=== PATIENT | male | born 1940 | race Caucasian/White ===

== ENCOUNTER 2017-01-26 13:33 | Emergency (ER) | payer OTHER ==
[~2017-01-26] VITALS: Ht 170.2 cm; Wt 82.0 kg
[~2017-01-26 13:33] MED LIST: GLIM2TAB PO; LORTA5 PO; METF1000 PO; SIMV5TAB3 PO; ST JTAB PO
[2017-01-26 13:35] VITALS: BP 167/84; PULSE 74; RESP 14; TEMP 98.2; O2SAT 99
--- NOTE | 2017-01-26 14:32 | PD ---
HPI Chief Complaint: Bite or Sting Time Seen by Provider: 14:28 Travel History International Travel<30 days: No Contact w/Intl Traveler<30days: No Traveled to known affect area: No History of Present Illness HPI 76-year-old male came to the emergency room with history of a dog bite on his right upper extremity. Patient says that he was coming out of his doctor's office when he noticed a stray dog TRYING to cross the street. There was a leash attached to him. Patient grabbed the leash and tried to tie the dog to a vogel when the dog turned around and bit him. Patient called his primary care who asked him to go to the nearest emergency room. There is slight bleeding from the elbow area where he was bitten. He says it does not hurt otherwise. He has noticed some swelling there. Patient does not recall his last tetanus shot. [facility] Past Medical History Narrative Medical List of his past medical, surgical, social and family history as reviewed from the nursing note. Arthritis: Yes Cancer: No Cardiovascular Problems: Yes High Cholesterol: Yes Diabetes: Yes Endocrine: Yes GERD: Yes (GERD) Genitourinary: No Hypertension: Yes Immune Disorder: No Musculoskeletal: No Neurologic: No Psychiatric: No Reproductive: No Respiratory: No Ulcer: Yes (PEPTIC ULCER) ?: Not Social History Alcohol Use: Yes Tobacco Use: No Substance Use: No Allergies-Medications (Allergen,Severity, Reaction): Coded Allergies: No Known Allergies (Unverified , 09/17/13) Comments No known drug allergies. Reported Meds & Prescriptions Reported Meds & Active Scripts Active Augmentin (Amoxicillin-Clavulanate) 500-125 mg Tab 500 Mg PO BID 10 Days Reported Hydrocodone/Acetaminophen 5 mg/325 mg 1 Tab Tab 1 Tab PO Q4 PRN 1-2 TABLET NEEDED FOR PAIN. Glimepiride 2 Mg Tab 2 Mg PO DAILY Metformin (Metformin HCl) 1,000 Mg Tab 500 Mg PO DAILY Simvastatin 5 Mg Tab 5 Mg PO HS PRN Aspirin Ec Low Strength (Aspirin) 81 Mg Tab 81 Mg PO DAILY Narrative Medication List of his home medications reviewed from the nursing note. Review of Systems Except as stated in HPI: all other systems reviewed are Neg Physical Exam Narrative GENERAL: Awake, alert, no obvious distress SKIN: Focused skin assessment warm/dry. Right medial aspect of the elbow has to puncture wound with minimal bleeding. It does not appear to be entering the joint. HEAD: Atraumatic. Normocephalic. EYES: Pupils equal and round. No scleral icterus. No injection or drainage. ENT: No nasal bleeding or discharge. Mucous membranes pink and moist. NECK: Trachea midline. No JVD. CARDIOVASCULAR: Regular rate and rhythm. No murmur appreciated. RESPIRATORY: No accessory muscle use. Clear to auscultation. Breath sounds equal bilaterally. GASTROINTESTINAL: Abdomen soft, non-tender, nondistended. Hepatic and splenic margins not palpable. MUSCULOSKELETAL: No obvious deformities. No clubbing. No cyanosis. No edema. Distal pulses and sensation intact of the right upper extremity NEUROLOGICAL: Awake and alert. No obvious cranial nerve deficits. Motor grossly within normal limits. Normal speech. PSYCHIATRIC: Appropriate mood and affect; insight and judgment normal. Data Data Last Documented VS Vital Signs Date Time Temp Pulse Resp B/P Pulse Ox O2 Delivery O2 Flow Rate FiO2 01/26/17 13:35 98.2 74 14 167/84 99 Orders Tetanus/Diphtheria Tox Adult (Tetanus/Di (01/26/17 14:45) Rabies Immune Globulin Inj (Hyperrab S/D (01/26/17 14:45) Rabies Vaccine Human Cell Inj (Imovax In (01/26/17 14:45) Amoxicil-Clavulanate (Augmentin) (01/26/17 14:45) ^ Irrigate (01/26/17 14:35) Wound Care (01/26/17 14:35) MDM Medical Decision Making Medical Screen Exam Complete: Yes Emergency Medical Condition: Yes Medical Record Reviewed: Yes Differential Diagnosis Dog bite Narrative Course 2:52 PM I have ordered rabies immunoglobulin, rabies shot and tetanus shot. He will get a dose of Augmentin and prescription to go home with. Patient will be explained that he needs to return to get the remaining rabies shots as well. Registration will try to contact animal control to look out for the stop. The nurse is going to irrigate the wound and a dressing Procedures EKG Prior to Arrival: No Diagnosis Primary Impression: Dog bite Qualified Code: W54.0XXA - Dog bite, initial encounter Referrals: Primary Care Physician Additional Instructions: Please return to the ER on day #3, 7 and 14 for subsequent rabies shots. Return to the ER sooner if the wound starts turning infected. Follow-up with your primary care. Med/Other Pt SpecificInfo: Prescription(s) given Scripts Amoxicillin-Clavulanate (Augmentin)500-125 mg [id number] Mg PO BID 10 Days Ref 0 Prov:Sweta Lawson MD 01/26/17 Disposition: 01 DISCHARGE HOME Condition: Stable Sweta Lawson MD January 26, 2017 14:32
[2017-01-26] MEDS ORDERED: TETANUS/DIPHTHERIA TOXOID ADULT 0.5 ML VIAL IM ONE (14:45)
[2017-01-26] MEDS ORDERED: RABIES VACCINE HUMAN DIPL CELL 2.5 UNITS/ML SYRINGE IM ONE (14:45)
[2017-01-26] MEDS ORDERED: AMOXICILLIN/CLAVULANATE K 500 MG TAB PO ONE (14:45)
[2017-01-26] MEDS ORDERED: RABIES IMMUNE GLOBULIN INJ 1,500 UNITS/10 ML VIAL IM ONE (14:45)
[2017-01-26] MEDS ORDERED: AUGM500T7 PO (15:01)
== END 2017-01-26 16:08 | disposition home or self-care (01) ==
LOC: NEPD 13:33
DX: S51.051A Open bite, right elbow, initial encounter (principal); E11.9 Type 2 diabetes mellitus without complications; E78.00 Pure hypercholesterolemia, unspecified; I10 Essential (primary) hypertension; Z79.4 Long term (current) use of insulin; Z23 Encounter for immunization; W54.0XXA Bitten by dog, initial encounter
CPT/HCPCS: 90375; 90471; 90472; 90675; 90714; 96372

== ENCOUNTER 2017-01-29 11:06 | Emergency (ER) | payer OTHER ==
[~2017-01-29] VITALS: Ht 170.2 cm; Wt 84.4 kg
[~2017-01-29 11:06] MED LIST changes: +AUGM500T7 PO
[2017-01-29 11:15] VITALS: BP 131/68; PULSE 66; RESP 16; TEMP 97.8; O2SAT 99
[2017-01-29] MEDS ORDERED: GLIM2TAB PO (11:25)
[2017-01-29] MEDS ORDERED: ZOCO5TAB PO (11:25)
[2017-01-29] MEDS ORDERED: ASPI81CH CHEW (11:25)
[2017-01-29] MEDS ORDERED: METF500T PO (11:25)
[2017-01-29] MEDS ORDERED: RABIES IMMUNE GLOBULIN INJ 1,500 UNITS/10 ML VIAL IM ONE (11:30)
--- NOTE | 2017-01-29 11:56 | PD ---
HPI Chief Complaint: Bite or Sting Time Seen by Provider: 11:49 Travel History International Travel<30 days: No Contact w/Intl Traveler<30days: No Traveled to known affect area: No History of Present Illness HPI 76-year-old male presents to the emergency department for follow-up dog bite to the right arm/elbow 3 days ago. At that time the patient was started on rabies immune globulin and vaccine. He is also started on Augmentin. Patient has no real complaints today. The wound site appears to be healing well with localized bruising only. Patient has full range of motion of the elbow and arm without pain. Patient has no known drug allergies. PFSH Past Medical History Arthritis: Yes Cancer: No Cardiovascular Problems: Yes High Cholesterol: Yes Diabetes: Yes Patient Takes Glucophage: Yes Endocrine: Yes Gastrointestinal Disorders: Yes GERD: Yes (GERD) Genitourinary: No Hypertension: Yes Immune Disorder: No Musculoskeletal: No Neurologic: No Psychiatric: No Reproductive: No Respiratory: No Ulcer: Yes (PEPTIC ULCER) Tetanus Vaccination: < 5 Years Influenza Vaccination: No Social History Alcohol Use: Yes Tobacco Use: No Substance Use: No Allergies-Medications (Allergen,Severity, Reaction): Coded Allergies: No Known Allergies (Unverified , 01/29/17) Reported Meds & Prescriptions Reported Meds & Active Scripts Active Augmentin (Amoxicillin-Clavulanate) 500-125 mg Tab 500 Mg PO BID 10 Days Reported Zocor (Simvastatin) 5 Mg Tab 5 Mg PO DAILY Metformin (Metformin HCl) 500 Mg Tab 500 Mg PO BIDPC With meals Glimepiride 2 Mg Tab 2 Mg PO DAILY Take with breakfast or first main meal Aspirin 81 Mg Chew 81 Mg CHEW DAILY Review of Systems Except as stated in HPI: all other systems reviewed are Neg General / Constitutional: No: Fever Eyes: No: Visual changes HENT: No: Headaches Cardiovascular: No: Chest Pain or Discomfort Respiratory: No: Shortness of Breath Gastrointestinal: No: Abdominal Pain Genitourinary: No: Dysuria Musculoskeletal: No: Pain Skin: Positive Lesions (dog bite to right arm/elbow.), No Rash Neurologic: No: Weakness Psychiatric: No: Depression Endocrine: No: Polydipsia Hematologic/Lymphatic: No: Easy Bruising Physical Exam Narrative GENERAL: Patient is in no acute distress. SKIN: Warm and dry. Patient has puncture wound to the right medial elbow with localized ecchymosis, but without signs of cellulitis. HEAD: Atraumatic. Normocephalic. EYES: Pupils equal and round. No scleral icterus. No injection or drainage. ENT: No nasal bleeding or discharge. Mucous membranes pink and moist. Pharynx is clear. NECK: Trachea midline. Supple and nontender. CARDIOVASCULAR: Regular rate and rhythm. RESPIRATORY: No accessory muscle use. Clear to auscultation. Breath sounds equal bilaterally. MUSCULOSKELETAL: Extremities without clubbing, cyanosis, or edema. No obvious deformities. Full strength and range of motion without pain. NEUROLOGICAL: Awake and alert. No obvious cranial nerve deficits. Motor grossly within normal limits. Five out of 5 muscle strength in the arms and legs. Normal speech. PSYCHIATRIC: Appropriate mood and affect; insight and judgment normal. Data Data Last Documented VS Vital Signs Date Time Temp Pulse Resp B/P Pulse Ox O2 Delivery O2 Flow Rate FiO2 01/29/17 11:15 97.8 66 16 131/68 99 Orders Rabies Immune Globulin Inj (Hyperrab S/D (01/29/17 11:30) Rabies Vaccine Human Cell Inj (Imovax In (01/29/17 12:00) MDM Medical Decision Making Medical Screen Exam Complete: Yes Emergency Medical Condition: Yes Medical Record Reviewed: Yes Differential Diagnosis Dog bite. Need for rabies vaccine. Risk of cellulitis. Narrative Course Patient is medically stable at time of exam. Wound is examined the dressing is reapplied. Patient gets his repeat rabies vaccine #2. Patient is to continue the Augmentin as previously prescribed. Patient is to return in 4 days, and in 10 days for his third and fourth rabies vaccine. Patient is to follow-up sooner with any worsening symptoms as needed. Diagnosis Primary Impression: Dog bite Qualified Code: W54.0XXD - Dog bite, subsequent encounter Additional Impression: Need for rabies vaccination Patient Instructions: General Instructions, Rabies Vaccine (By injection) Additional Instructions: Wound is examined the dressing is reapplied. Patient gets his repeat rabies vaccine #2. Patient is to continue the Augmentin as previously prescribed. Patient is to return in 4 days, and in 10 days for his third and fourth rabies vaccine. Patient is to follow-up sooner with any worsening symptoms as needed. Med/Other Pt SpecificInfo: No Change to Meds Disposition: 01 DISCHARGE HOME Condition: Stable Jameson Bunch January 29, 2017 11:56
[2017-01-29] MEDS ORDERED: RABIES VACCINE HUMAN DIPL CELL 2.5 UNITS/ML SYRINGE IM ONE (12:00)
== END 2017-01-29 12:11 | disposition home or self-care (01) ==
LOC: PHEFT 11:06
DX: S51.051D Open bite, right elbow, subsequent encounter (principal); E11.9 Type 2 diabetes mellitus without complications; I10 Essential (primary) hypertension; E78.00 Pure hypercholesterolemia, unspecified; Z23 Encounter for immunization; Z79.84 Long term (current) use of oral hypoglycemic drugs; Z87.19 Personal history of other diseases of the digestive system; Z87.39 Personal history of other diseases of the musculoskeletal system and connective tissue; Z86.79 Personal history of other diseases of the circulatory system; W54.0XXD Bitten by dog, subsequent encounter
CPT/HCPCS: 90471; 90675

== ENCOUNTER 2017-02-05 12:20 | Emergency (ER) | payer OTHER ==
[~2017-02-05] VITALS: Ht 170.2 cm; Wt 84.4 kg
[~2017-02-05 12:20] MED LIST changes: +ASPI81CH CHEW; -LORTA5 PO; -METF1000 PO; +METF500T PO; -SIMV5TAB3 PO; -ST JTAB PO; +ZOCO5TAB PO
[2017-02-05 12:23] VITALS: BP 118/69; PULSE 70; RESP 16; TEMP 98.1; O2SAT 98
--- NOTE | 2017-02-05 12:32 | PD ---
HPI Chief Complaint: Wound/Suture/Staple Re-Check Time Seen by Provider: 12:32 Travel History International Travel<30 days: No Contact w/Intl Traveler<30days: No Traveled to known affect area: No History of Present Illness HPI 76-year-old male presents the emergency department 10 days status post dog bite to the right elbow. Patient is here for his third rabies shot. He has no complaints. Wound is healing well. He has no known drug allergies. PFSH Past Medical History Arthritis: Yes Cancer: No Cardiovascular Problems: Yes High Cholesterol: Yes Diabetes: Yes Endocrine: Yes Gastrointestinal Disorders: Yes GERD: Yes (GERD) Genitourinary: No Hypertension: Yes Immune Disorder: No Musculoskeletal: No Neurologic: No Psychiatric: No Reproductive: No Respiratory: No Ulcer: Yes (PEPTIC ULCER) Social History Alcohol Use: Yes Tobacco Use: No Substance Use: No Allergies-Medications (Allergen,Severity, Reaction): Coded Allergies: No Known Allergies (Unverified , 02/05/17) Reported Meds & Prescriptions Reported Meds & Active Scripts Active Augmentin (Amoxicillin-Clavulanate) 500-125 mg Tab 500 Mg PO BID 10 Days Reported Zocor (Simvastatin) 5 Mg Tab 5 Mg PO DAILY Metformin (Metformin HCl) 500 Mg Tab 500 Mg PO BIDPC With meals Glimepiride 2 Mg Tab 2 Mg PO DAILY Take with breakfast or first main meal Aspirin 81 Mg Chew 81 Mg CHEW DAILY Review of Systems Except as stated in HPI: all other systems reviewed are Neg General / Constitutional: No: Fever Eyes: No: Visual changes HENT: No: Headaches Cardiovascular: No: Chest Pain or Discomfort Respiratory: No: Shortness of Breath Gastrointestinal: No: Abdominal Pain Genitourinary: No: Dysuria Musculoskeletal: No: Pain Skin: No Rash Neurologic: No: Weakness Psychiatric: No: Depression Endocrine: No: Polydipsia Hematologic/Lymphatic: No: Easy Bruising Physical Exam Narrative GENERAL: Patient appears no acute distress. SKIN: Warm and dry. Well healing puncture wound/dog bite to the right elbow. No signs of cellulitis or other issue. HEAD: Atraumatic. Normocephalic. EYES: Pupils equal and round. No scleral icterus. No injection or drainage. ENT: No nasal bleeding or discharge. Mucous membranes pink and moist. Pharynx is clear. NECK: Trachea midline. Supple nontender. CARDIOVASCULAR: Regular rate and rhythm. RESPIRATORY: No accessory muscle use. MUSCULOSKELETAL: Extremities without clubbing, cyanosis, or edema. No obvious deformities. Full range of motion strength and sensation bilaterally. NEUROLOGICAL: Awake and alert. No obvious cranial nerve deficits. Motor grossly within normal limits. Five out of 5 muscle strength in the arms and legs. Normal speech. PSYCHIATRIC: Appropriate mood and affect; insight and judgment normal. Data Data Last Documented VS Vital Signs Date Time Temp Pulse Resp B/P Pulse Ox O2 Delivery O2 Flow Rate FiO2 02/05/17 12:23 98.1 70 16 118/69 98 MDM Medical Decision Making Medical Screen Exam Complete: Yes Emergency Medical Condition: Yes Medical Record Reviewed: Yes Differential Diagnosis Dog bite right arm. Puncture wound. Need for rabies vaccination. Narrative Course Patient is medically stable at time of exam. Patient receives his third rabies vaccine. Patient is to return on 09 February for his last rabies vaccine. Diagnosis Primary Impression: Need for rabies vaccination Additional Impression: Dog bite Qualified Code: W54.0XXD - Dog bite, subsequent encounter Referrals: Primary Care Physician Patient Instructions: General Instructions Additional Instructions: Patient is medically stable at time of exam. Patient receives his third rabies vaccine. Patient is to return on 09 February for his last rabies vaccine. Med/Other Pt SpecificInfo: No Change to Meds Disposition: 01 DISCHARGE HOME Condition: Stable Jameson Bunch February 05, 2017 12:32
[2017-02-05] MEDS ORDERED: RABIES VACCINE HUMAN DIPL CELL 2.5 UNITS/ML SYRINGE IM ONE (12:45)
== END 2017-02-05 12:55 | disposition home or self-care (01) ==
LOC: PHEFT 12:20
DX: S51.051D Open bite, right elbow, subsequent encounter (principal); I10 Essential (primary) hypertension; E11.9 Type 2 diabetes mellitus without complications; E78.00 Pure hypercholesterolemia, unspecified; Z23 Encounter for immunization; Z79.84 Long term (current) use of oral hypoglycemic drugs; Z87.39 Personal history of other diseases of the musculoskeletal system and connective tissue; Z86.79 Personal history of other diseases of the circulatory system; Z87.19 Personal history of other diseases of the digestive system; W54.0XXD Bitten by dog, subsequent encounter
CPT/HCPCS: 90471; 90675

== ENCOUNTER 2017-02-10 12:34 | Emergency (ER) | payer OTHER ==
[~2017-02-10] VITALS: Ht 170.2 cm; Wt 84.0 kg
[~2017-02-10 12:34] MED LIST changes: -AUGM500T7 PO
[2017-02-10 12:35] VITALS: BP 130/70; PULSE 65; RESP 15; TEMP 98; O2SAT 98
--- NOTE | 2017-02-10 12:41 | PD ---
HPI Chief Complaint: Wound/Suture/Staple Re-Check Time Seen by Provider: 12:40 Travel History International Travel<30 days: No Contact w/Intl Traveler<30days: No Traveled to known affect area: No History of Present Illness HPI 76-year-old male presents to the emergency department status post dog bite to the right elbow on January 26. Patient is here for his final rabies vaccination. Patient is completed his Augmentin and has no other complaints. He has no known drug allergies. PFSH Past Medical History Arthritis: Yes Cancer: No Cardiovascular Problems: Yes High Cholesterol: Yes Diabetes: Yes Endocrine: Yes Gastrointestinal Disorders: Yes GERD: Yes Genitourinary: No Hypertension: Yes Immune Disorder: No Musculoskeletal: No Neurologic: No Psychiatric: No Reproductive: No Respiratory: No Ulcer: Yes (Peptic) ?: Not Social History Alcohol Use: Yes Tobacco Use: No Substance Use: No Allergies-Medications (Allergen,Severity, Reaction): Coded Allergies: No Known Allergies (Unverified , 02/10/17) Reported Meds & Prescriptions Reported Meds & Active Scripts Active Reported Zocor (Simvastatin) 5 Mg Tab 5 Mg PO DAILY Metformin (Metformin HCl) 500 Mg Tab 500 Mg PO BIDPC With meals Glimepiride 2 Mg Tab 2 Mg PO DAILY Take with breakfast or first main meal Aspirin 81 Mg Chew 81 Mg CHEW DAILY Review of Systems Except as stated in HPI: all other systems reviewed are Neg General / Constitutional: No: Fever Eyes: No: Visual changes HENT: No: Headaches Cardiovascular: No: Chest Pain or Discomfort Respiratory: No: Shortness of Breath Gastrointestinal: No: Abdominal Pain Genitourinary: No: Dysuria Musculoskeletal: No: Pain Skin: No Rash Neurologic: No: Weakness Psychiatric: No: Depression Endocrine: No: Polydipsia Hematologic/Lymphatic: No: Easy Bruising Physical Exam Narrative GENERAL: Patient appears in good spirits in no acute distress. SKIN: Warm and dry. Wound site on the right elbow appears well-healed with small amount of lingering ecchymosis. HEAD: Atraumatic. Normocephalic. EYES: Pupils equal and round. No scleral icterus. No injection or drainage. ENT: No nasal bleeding or discharge. Mucous membranes pink and moist. Pharynx is clear. NECK: Trachea midline. Supple CARDIOVASCULAR: Regular rate and rhythm. RESPIRATORY: No accessory muscle use. MUSCULOSKELETAL: Extremities without clubbing, cyanosis, or edema. No obvious deformities. Full strength and range of motion throughout. NEUROLOGICAL: Awake and alert. No obvious cranial nerve deficits. Motor grossly within normal limits. Five out of 5 muscle strength in the arms and legs. Normal speech. PSYCHIATRIC: Appropriate mood and affect; insight and judgment normal. Data Data Last Documented VS Vital Signs Date Time Temp Pulse Resp B/P Pulse Ox O2 Delivery O2 Flow Rate FiO2 02/10/17 12:35 98.0 65 15 130/70 98 Orders Rabies Vaccine Human Cell Inj (Imovax In (02/10/17 12:45) [facility] Medical Decision Making Medical Screen Exam Complete: Yes Emergency Medical Condition: Yes Differential Diagnosis Dog bite right arm. Rabies vaccination. Wound check. Narrative Course Patient appears well-healed, without lasting sequela Third and last rabies immunization is given. No further medical treatment is felt warranted at this time. Patient follow with his regular primary care physician as needed. Diagnosis Primary Impression: Dog bite Qualified Code: W54.0XXD - Dog bite, subsequent encounter Additional Impression: Need for rabies vaccination Referrals: Primary Care Physician Patient Instructions: General Instructions, Rabies (ED), Rabies Vaccine (By injection) Additional Instructions: Patient appears well-healed, without lasting sequela Third and last rabies immunization is given. No further medical treatment is felt warranted at this time. Patient follow with his regular primary care physician as needed. Med/Other Pt SpecificInfo: No Change to Meds, No Meds Exist/No RX given Disposition: 01 DISCHARGE HOME Condition: Stable Jameson Bunch February 10, 2017 12:41
[2017-02-10] MEDS ORDERED: RABIES VACCINE HUMAN DIPL CELL 2.5 UNITS/ML SYRINGE IM ONE (12:45)
== END 2017-02-10 13:33 | disposition home or self-care (01) ==
LOC: PHEFT 12:34
DX: Z23 Encounter for immunization (principal); E78.00 Pure hypercholesterolemia, unspecified; E11.9 Type 2 diabetes mellitus without complications; K21.9 Gastro-esophageal reflux disease without esophagitis; I10 Essential (primary) hypertension; Z79.899 Other long term (current) drug therapy; Z79.82 Long term (current) use of aspirin
CPT/HCPCS: 90471; 90675